=== PATIENT | male | born 1945 | race Caucasian/White ===

== ENCOUNTER 2017-04-14 12:11 | Emergency (ER) | payer MEDICARE, MEDICAID ==
[2017-04-14] MEDS ORDERED: HYDROCODONE/APAP 7.5/325MG TABLET PO ONE (12:22)
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
[2017-04-14 12:56] LABS: BLOOD UREA NITROGEN 20 mg/dL (8-23); CREATININE 0.8 mg/dL (0.7-1.2); EST GLOMERULAR FILTRATION RATE > 60 mL/min; GLUCOSE,RANDOM 81 mg/dL (74-109)
[2017-04-14 12:59] LABS: HEMATOCRIT 41.9 % (42.0-52.0); HEMOGLOBIN 14.1 gm/dl (14.0-18.0); MEAN CORPUSCULAR HEMOGLOBIN 29.6 pg (27-33); MEAN CORPUSCULAR HGB CONC 33.7 g/dl (32-36); MEAN PLATELET VOLUME 11.4 fl (7.4-10.4); PLATELET COUNT 182 K/uL (130-400); RED BLOOD COUNT 4.76 M/uL (4.40-5.70); RED CELL DISTRIBUTION WIDTH 13.8 % (11.5-14.5); WHITE BLOOD COUNT W/O DIFF 7.3 K/uL (4.2-12.2)
--- NOTE | 2017-04-15 14:19 | RADIOLOGY REPORT ---
EXAM: ANKLE LEFT 3 VIEWS HISTORY: PAIN. TECHNIQUE: Three-view left ankle. COMPARISON: None. ENCOUNTER: Initial. FINDINGS: Old fracture deformities of the mid to distal tibia and fibula. Deformity of the mid to distal fibula. Degenerative changes of the ankle mortise with subchondral cyst formation and bony spur formation. Questionable small loose bodies in the posterior joint. Small calcaneal spurs. Soft tissues are otherwise unremarkable. IMPRESSION: 1. NEGATIVE FOR ACUTE ABNORMALITY. OLD FRACTURES OF THE DISTAL FIBULA AND TIBIA. 2. DEGENERATIVE CHANGES OF THE ANKLE MORTISE. QUESTIONABLE LOOSE BODY. 3. SMALL CALCANEAL SPURS. JOB NUMBER: [id number] [facility]TDD
--- NOTE | 2017-04-15 15:07 | US VENOUS DOPPLER REPORT ---
DATE: 04/14/2017 at 1224. EXAM: VENOUS DOPPLER ULTRASOUND OF THE LEFT LOWER EXTREMITY. HISTORY: Pain in the anteromedial aspect of the left lower leg for three months becoming severe. No swelling or redness. TECHNIQUE: Rehman scale, color Doppler, and duplex Doppler evaluation of the deep venous structures of the left lower extremity performed from the level of the common femoral vein into the lower leg. FINDINGS: The common femoral vein, greater saphenous vein, profunda, superficial femoral vein, and popliteal vein are anechoic and easily compressible throughout. Normal venous waveforms are noted at all of these levels and are augmentable. The anterior tibial, posterior tibial, and peroneal veins are visualized and appear patent. IMPRESSION: NO EVIDENCE OF DEEP VENOUS THROMBOSIS WITHIN THE LEFT LOWER EXTREMITY. JOB NUMBER: [id number] [facility]
== END 2017-04-14 14:40 | disposition home or self-care (01) ==
LOC: ER 12:11
DX: M25.572 Pain in left ankle and joints of left foot (principal); M79.662 Pain in left lower leg; E11.9 Type 2 diabetes mellitus without complications; Z79.84 Long term (current) use of oral hypoglycemic drugs
CPT/HCPCS: 80048; 84550; 85027; 86140; 99283; 99284

== ENCOUNTER 2018-08-02 15:07 | Emergency (ER) | payer MEDICARE, MEDICAID ==
[2018-08-02] MEDS ORDERED: ACETAMINOPHEN 1,000 MG/100 ML BTL IVPB ONE (15:23)
[2018-08-02] MEDS ORDERED: DIAZEPAM (VALIUM) 5MG/ML **10ML VIAL IVP ONE (15:23)
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
--- NOTE | 2018-08-04 19:37 | CT SCAN REPORT ---
EXAM: CT SCAN CERVICAL SPINE WO CONTRAST HISTORY: LEFT-SIDED FOCAL NECK PAIN FOR THREE DAYS, NO KNOWN INJURY. TECHNIQUE: Noncontrast CT cervical spine. COMPARISON: None. FINDINGS: No acute fracture is seen. No evidence of dislocation. Prevertebral soft tissues appear within normal limits. Diffuse disc space height loss. There is bridging ossification between the C5, C6, and C7 vertebral bodies. Multilevel uncovertebral and facet joint osteophytes. Suggestion of mild to moderate central spinal canal narrowing at C3 -4. Multilevel neural foraminal narrowing, noted most prominently at C2-3 on the right, C3-4 bilaterally, C6-7 on the left. Minimal grade 1 anterolisthesis at C4-5 related to facet joint osteophytes. IMPRESSION: 1. NO EVIDENCE OF ACUTE FRACTURE OR DISLOCATION. 2. MODERATE TO MARKED MULTILEVEL CERVICAL SPINE DEGENERATIVE CHANGES, ABOVE. J[facility]BER: [id number] [facility]
== END 2018-08-02 16:52 | disposition home or self-care (01) ==
LOC: ER 15:07
DX: M43.6 Torticollis (principal); E11.9 Type 2 diabetes mellitus without complications; Z79.4 Long term (current) use of insulin; Z79.84 Long term (current) use of oral hypoglycemic drugs
CPT/HCPCS: 99284 ×2; 96365; 96375; 72125; J3360